=== PATIENT | female | born 1960 | race Caucasian/White ===

== ENCOUNTER 2020-06-22 07:03 | Outpatient (CLI) | payer OTHER, SELFPAY ==
--- NOTE | 2020-06-22 | ECG_ITS ---
Measurements Intervals [place] Rate: 76 P: 7 [place]: 163 QRS: -28 QRSD: 95 T: 66 QT: 399 QTc: 451 Interpretive Statements SINUS RHYTHM INFERIOR INFARCT, AGE INDETERMINATE ABNORMAL ECG Electronically Signed On 06-22-2020 8:18:37 MAIL HANDLERS SUPERVISOR by August Zavaleta D.O.
[2020-06-22 07:36] LABS: Hematocrit 44.6 % (37.0-47.0); Hemoglobin 14.2 g/dL (12.0-15.0)
[2020-06-22 07:44] LABS: Urine Cotinine NEGATIVE
[2020-06-22 07:44] LABS: Hemoglobin A1C 6.7 % (<5.7)
[2020-06-22 07:47] LABS: Albumin Level 3.9 g/dL (3.5-5.1); Estimated Glomerular Filt Rate > 60; Glucose 193 mg/dL (65-105)
== END 2020-06-22 07:04 | disposition home or self-care (01) ==
PROVIDERS: PCP Internal Medicine; Visit Provider Orthopaedic Surgery
DX: Z01.818 Encounter for other preprocedural examination (principal); M17.12 Unilateral primary osteoarthritis, left knee; R94.31 Abnormal electrocardiogram [ECG] [EKG]
CPT/HCPCS: 80307; 82040; 82565; 82947; 83036; 85014; 85018; 93005

== ENCOUNTER 2020-07-04 10:44 | Outpatient (CLI) | payer OTHER, SELFPAY ==
[2020-07-04 12:05] LABS: Basophils Absolute Auto 0.1 K/mm3 (0.0-0.1); Basophils Percent Auto 0.9 % (0.2-1.2); Eosinophils Absolute Auto 0.2 K/mm3 (0-0.3); Eosinophils Percent Auto 2.4 % (0-4.4); Hematocrit 44.2 % (37.0-47.0); Hemoglobin 13.9 g/dL (12.0-15.0); Immature Granulocyte Absolute 0.03 K/mm3 (0.00-0.031); Immature Granulocyte Percent A 0.4 % (0-0.5); Lymphocytes Absolute Auto 2.16 K/mm3 (0.9-3.2); Lymphocytes Percent Auto 28.7 % (18.3-44.2); Mean Corpuscular HGB Conc 31.4 g/dl (32-36); Mean Corpuscular Hemoglobin 25.5 pg (26-34); Mean Platelet Volume 10.2 fl (7.4-10.4); Monocytes Absolute Auto 0.4 K/mm3 (0.1-0.6); Monocytes Percent Auto 5.3 % (2.6-8.5); Neutrophils Absolute Auto 4.7 K/mm3 (1.3-6.7); Neutrophils Percent Auto 62.3 % (45.5-73.1); Platelet Count Result 229 k/mm3 (150-375); Red Blood Count 5.46 M/mm3 (4.2-5.4); Red Cell Distribution Width 13.6 % (11.5-14.5); White Blood Count 7.5 K/mm3 (4.5-10.0)
[2020-07-04 12:17] LABS: Anion Gap 5 mmol/L (8-16); Blood Urea Nitrogen 14 mg/dL (7-17); Calcium 9.1 mg/dL (8.4-10.2); Carbon Dioxide 30 mmol/L (22-30); Chloride 104 mmol/L (98-107); Estimated Glomerular Filt Rate > 60; Glucose 250 mg/dL (65-105); Potassium 4.5 mmol/L (3.4-5.0); Sodium 139 mmol/L (137-145)
== END 2020-07-04 10:45 | disposition home or self-care (01) ==
LOC: ANHSURGERY 10:49
PROVIDERS: Anesthesiology; PCP Internal Medicine; Visit Provider Orthopaedic Surgery
DX: Z01.818 Encounter for other preprocedural examination (principal); M17.12 Unilateral primary osteoarthritis, left knee; E11.9 Type 2 diabetes mellitus without complications
CPT/HCPCS: 36415; 80048; 85025; 87081

== ENCOUNTER → 2020-07-23 02:18 | Outpatient (CLI) | payer OTHER, SELFPAY ==
[2020-07-23 20:22] LABS: SARS-CoV-2 RNA PCR Negative
== END ==
PROVIDERS: PCP Internal Medicine; Visit Provider Orthopaedic Surgery
DX: Z01.812 Encounter for preprocedural laboratory examination (principal); Z20.822 Contact with and (suspected) exposure to COVID-19
CPT/HCPCS: C9803; U0003; U0005

== ENCOUNTER 2020-07-26 01:40 | Day surgery (SDC) | payer OTHER, SELFPAY ==
[2020-07-04 10:55] VITALS: BMI 37.1
[2020-07-04 11:42] VITALS: BP 150/80; PULSE 88; RESP 16; TEMP 37.3; O2SAT 97
--- NOTE | 2020-07-25 10:38 | WPDANESEPPF ---
Anes - Initial Pre Proc Eval Procedure: Operation Date: 07/26/20 10:00 Proposed Procedures p Left Total Knee Arthroplasty - César Castaneda MD Date/Time: 07/25/20 10:38 Surgeon: César Castaneda MD Pre Op Diagnosis: Primary OA Left Knee Patient Data Age: 60 Gender: F Height: 1.63 m Weight: 98.2 kg Last Vital Signs Temp 37.3 C 07/04/20 11:42 Pulse 88 07/04/20 11:42 Resp 16 07/04/20 11:42 BP 150/80 H 07/04/20 11:42 Pulse Ox 97 07/04/20 11:42 Allergies Allergy/AdvReac Type Severity Reaction Status Date / Time aspirin Allergy Severe RACING Verified 07/26/20 08:56 HEART doxycycline Allergy Severe Anaphylaxis Verified 07/26/20 08:56 Home Medications Medication Instructions Recorded Confirmed Type omega-3 fatty acids 1,000 mg 1,000 mg PO DAILY 04/02/19 07/26/20 History capsule L.acidoph, paracasei,B. lactis 10 10 cell PO DAILY 04/06/20 07/26/20 History billion cell capsule psyllium husk (with sugar) 2 gram 2 wafer PO DAILY 04/06/20 07/26/20 History oral wafer losartan 50 mg tablet 50 mg PO DAILY #90 tablet 06/29/20 07/26/20 Rx sitagliptin 100 mg tablet 100 mg PO DAILY #90 tablet 06/29/20 07/26/20 Rx atorvastatin 10 mg PO DAILY 07/04/20 07/26/20 History calcium carbonate [Tums] 400 mg PO PRN PRN 07/04/20 07/04/20 History ECG: Date of Service: 06/22/20 Procedure(s): CA 12 lead EKG Accession Number(s): [id number] cc: ~ Measurements Intervals [place] Rate: 76 P: 7 [place]: 163 QRS: -28 QRSD: 95 T: 66 QT: 399 QTc: 451 Interpretive Statements SINUS RHYTHM INFERIOR INFARCT, AGE INDETERMINATE ABNORMAL ECG Electronically Signed On 06-22-2020 8:18:37 MOLD MAKER by August Zavaleta D.O. 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 Chicken pox Chronic GERD Diarrhea H/O nephrolithotomy with removal of calculi 2009 History of measles, mumps, or rubella Hyperlipidemia Hypertension Impacted cerumen of both ears Migraines Neck pain Obesity Osteoarthritis Osteoarthritis of both knees Thyroid nodule Type 2 diabetes mellitus Surgical History Surgical History H/O breast biopsy Right 2010 Removal of atypical cells and surrounding tissue on right breast 04/03/2010 Left biopsy 06/02/2013 H/O colonoscopy (~07/23/14) H/O dilation and curettage 2004 H/O lithotripsy right side & cystoscopy 02/11/2015 H/O removal of cyst Cyst from back 2003 H/O: hysterectomy 2005 History of tonsillectomy 2003 S/P thyroid biopsy 08/16/2016 Family History Family History Father Diabetes mellitus Hypertension CLL (chronic lymphocytic leukemia) Vascular disease Kidney disease Diverticulitis Arteriosclerosis of bypass graft of coronary artery Grandparent Diabetes mellitus Mother Breast cancer Heart valve disorder Other Cerebrovascular accident Family history of arthritis Family history of blood dyscrasia Family history of congestive heart failure Family history of obesity Social History Social History Smoking status: Never smoker Additional smoking assessment comments: DENIES ANY FORM OF TOBACCO USE Alcohol intake: never Substance use: never Living arrangements: with family Spiritual care concerns: No Anes - Eval Final PreProcedure Day of Procedure 07/25/20 10:38 Patient weight: obese Heart: regular rate
[2020-07-26] VITALS (14 sets, daily range): BP systolic 141–166; BP diastolic 72–97; PULSE 86–103; RESP 12–20; TEMP 36–37.3; O2SAT 94–100
--- NOTE | ~2020-07-26 | XR_ITS ---
EXAMINATION: XR knee LT 2V EXAM DATE: 07/26/2020 12:34 INDICATION: Left knee arthroplasty. TECHNIQUE: Portable frontal, crosstable lateral projections left knee obtained immediately following arthroplasty. Procedure performed by César Castaneda MD. FINDINGS: Patient is status post total knee arthroplasty. The orthopedic hardware is in expected po sition. There is also been removal of previously seen suprapatellar recess joint body. There is small amount of subcutaneous gas, gas within the knee joint space. Overlying soft tissue swelling. Corre late with procedure note. IMPRESSION: Status post total left knee arthroplasty. Reviewed, dictated and finalized at location A.
--- NOTE | 2020-07-26 06:53 | WPDHPUPDATE1 ---
History and Physical Update Update Date/Time: 07/26/20 06:53 History and Physical has been reviewed, including an updated exam of the patient. There are NO changes in the patient's condition. Risks, benefits, and alternatives have been discussed and questions answered. Patient agrees to proceed with procedure.
[2020-07-26] MEDS: LACTATED RINGERS 1,000 ML 30 ML IV CONT ×2 (09:05→12:20)
--- NOTE | 2020-07-26 09:09 | WPDANESPNB ---
Anes - Peripheral Nerve Block Date/Time: 07/26/20 09:09 I have discussed with the patient/family/POA the placement of a peripheral nerve block for post-operative pain management, including associated risks, benefits, complications, and side effects. Alternative methods of post-operative analgesia were detailed. Questions were solicited and answers provided to the satisfaction of the patient/family/POA. Time-Out: A pre-procedural Time-Out was completed immediately before starting the procedure and confirmed: Patient Identification, Site, Procedure, Patient Position and the Availability of Requisite Equipment. Clinical Indications: Acute post-operative pain management requested by the operative surgeon. Nerve Block Insertion Note Anes-nerve block: adductor canal left Patient position: supine Skin prep: chlorhexidine Needle: 22 gauge, stimulating, insulated echogenic needle. Needle length: 80 mm Technique: ultrasound Technique comment: in plane Injectate: bupivacaine 0.5% with epi 5 mcg/ml (30cc) Observations: tolerated well Complications: none Procedure start time:: 955 Procedure end time:: 1000
[2020-07-26] MEDS: TRANEXAMIC ACID 1,000MG/ISO100 1,000 MG/100 ML BAG 200 MG IVPB (09:13)
[2020-07-26] MEDS: ACETAMINOPHEN 500 MG TABLET 1000 MG PO (09:14)
[2020-07-26 09:18] LABS: Glucose Point of Care 194 (65-105)
[2020-07-26] MEDS: ceFAZolin 2 GM/D5W 50 ML 2 GM/50 ML BAG IVPB (10:09)
[2020-07-26] MEDS: GENTAMICIN BONE CEMENT REFOBACIN 1 EACH TOPICAL (11:24)
[2020-07-26] MEDS: fentaNYL CITRATE INJ (*CRX) 100 MCG/2 ML VIAL 25 MCG IV PUSH ×6 (12:50→13:50)
[2020-07-26 12:57] LABS: Glucose Point of Care 245 (65-105)
--- NOTE | 2020-07-26 12:59 | SUR.PHASEI ---
1230 2 VIEWS OF XRAYS TAKEN OF LT KNEE.
--- NOTE | 2020-07-26 13:00 | PM.PROC ---
Procedure Note - Detailed Date of procedure: 07/26/20 Pre-op diagnosis: Primary OA Left Knee Post-op diagnosis: same Procedure performed: Total knee arthroplasty, left Description of procedure: Excellent bone quality. Moderate medial release. Large osteophytes and a loose body in the superior pouch were removed. Standard bone resections and alignment. 3? external rotation on the fibula. Small cyst in the patella was bone grafted. Implants: Setphanie Triathlon size 4 press-fit femur, size 4 cemented low-profile tibia, 11mm CS polyethylene insert, 35 mm asymmetric metal backed patellar component. Anesthesia: GETA and regional (subsartorial nerve block) Surgeon: César Castaneda MD Safety And Security Manager: Lisa London PA-C Estimated blood loss (mL): 250 Drains: No Complications: None Condition: stable Disposition: PACU Findings: Physician certified pathology assistant, Lisa London PA-C, required for surgery; including patient positioning, draping, tissue retraction, maintaining instrument position, cement removal, wound closure, and dressing placement. OPERATIVE DETAILS: The patient was given a nerve block preoperatively, and then brought to the operating room. A general anesthetic was administered. The leg was prepped and draped in the usual sterile fashion. The limb was elevated and the tourniquet inflated to 300 mmHg during initial exposure, and cementation. A longitudinal incision was created along the medial border of the patella and patellar tendon, and a trivector approach to the knee was performed. A medial release was taken. The knee was then flexed. The osteophytes were carefully removed. The intramedullary guide was placed in the femoral canal. The distal femoral resection was then taken with the oscillating saw. The collateral ligaments were carefully protected. The tibia was carefully exposed. The jig was applied, and the proximal tibia was resected according to preoperative plan. The knee was balanced in extension. Appropriate releases were taken where needed. The anterior cruciate ligament and meniscal remnants were removed. The posterior cruciate ligament was preserved. The patella was measured. Patellar resection was carried out with the oscillating saw. The lug holes drilled. The femur was sized and rotation assessed using a combination of gap balancing, posterior referencing, and the AP axis. The 4 in 1 cutting block was used to finish the femoral cuts after equal gaps were assured. The lug holes were drilled. The osteophytes were carefully removed from the back of the knee. The knee was copiously irrigated with antibiotic solution periodically throughout the procedure. The meniscal remnants were removed. The spacer block was used to confirm equal flexion and extension gaps. Further releases were performed as needed. The tibia was sized and broached. The bony surfaces were prepared for cementing with pulsatile lavage. The real tibial component was cemented into position followed by press fitting the femoral component. Excess cement was carefully removed. The patella component was press-fit. Patellar tracking was carefully assessed. No additional releases were required. The wound was closed with #1 Vycril suture, #2 Quill suture, 0-Quill suture, and 2-0 Quill suture followed by Steri-Strips. A sterile bulky dressing was applied. Meticulous hemostasis was maintained throughout the procedure. There were no complications. The patient was extubated and brought to the recovery room in stable condition after the application of sterile dressing with Jan bandage.
--- NOTE | 2020-07-26 14:20 | ADMGEN ---
This patient, Nina Rivera, was admitted to 2 Medical Room 244-. Patient/family oriented to hospital policies and general routines including ID bracelet, bed and alarms, visiting hours, pain management, procedures, bathroom and other care routines, personal items, smoking policy, room service/diet, and visiting hours. Information on how to activate the Rapid Response Team has been discussed. Patient/Family are encouraged to report perceived risks to care and to ask questions if they do not understand what they are told or what they should do.
[2020-07-26] MEDS: oxyCODONE HCL (*CRX) 5 MG TAB IR 10 MG PO ×3 (15:09→23:48)
[2020-07-26] MEDS: LOSARTAN POTASSIUM 50 MG TABLET PO (15:09)
[2020-07-26 16:34] LABS: Glucose Point of Care 219 (65-105)
[2020-07-26] MEDS: DOCUSATE SODIUM 100 MG CAPSULE PO (17:30)
[2020-07-26] MEDS: ONDANSETRON INJ 4 MG/2 ML VIAL IV PUSH (17:32)
[2020-07-26] MEDS: oxyCODONE HCL (*CRX) 5 MG TAB IR PO (21:24)
[2020-07-27 00:15] LABS: Glucose Point of Care 203 (65-105)
[2020-07-27] MEDS: ONDANSETRON INJ 4 MG/2 ML VIAL IV PUSH (02:52)
[2020-07-27] MEDS: oxyCODONE HCL (*CRX) 5 MG TAB IR PO ×3 (02:52→15:21)
[2020-07-27 04:00] VITALS: BP 135/71; PULSE 101; RESP 16; TEMP 36.4; O2SAT 97
[2020-07-27] MEDS: oxyCODONE HCL (*CRX) 5 MG TAB IR 10 MG PO ×2 (04:34→11:19)
[2020-07-27 05:59] LABS: Basophils Percent Auto 0.2 % (0.2-1.2); Eosinophils Percent Auto 0.1 % (0-4.4); Hematocrit 38.7 % (37.0-47.0); Hemoglobin 12.7 g/dL (12.0-15.0); Immature Granulocyte Absolute 0.11 K/mm3 (0.00-0.031); Immature Granulocyte Percent A 0.8 % (0-0.5); Lymphocytes Absolute Auto 1.32 K/mm3 (0.9-3.2); Lymphocytes Percent Auto 9.6 % (18.3-44.2); Mean Corpuscular HGB Conc 32.8 g/dl (32-36); Mean Corpuscular Hemoglobin 26.1 pg (26-34); Mean Corpuscular Volume 79.6 fl (80-100); Mean Platelet Volume 9.4 fl (7.4-10.4); Monocytes Absolute Auto 1.3 K/mm3 (0.1-0.6); Monocytes Percent Auto 9.6 % (2.6-8.5); Neutrophils Percent Auto 79.7 % (45.5-73.1); Platelet Count Result 238 k/mm3 (150-375); Red Blood Count 4.86 M/mm3 (4.2-5.4); Red Cell Distribution Width 13.3 % (11.5-14.5); White Blood Count 13.8 K/mm3 (4.5-10.0)
[2020-07-27 06:10] LABS: Anion Gap 6 mmol/L (8-16); Blood Urea Nitrogen 13 mg/dL (7-17); Calcium 8.4 mg/dL (8.4-10.2); Carbon Dioxide 28 mmol/L (22-30); Chloride 99 mmol/L (98-107); Estimated CRCL calculation 76 ml/min; Estimated Glomerular Filt Rate > 60; Glucose 221 mg/dL (65-105); Sodium 133 mmol/L (137-145)
--- NOTE | 2020-07-27 07:48 | PM.IMCN ---
Assessment and Plan Assessment and plan (1) Osteoarthritis of both knees: Code(s): M17.0 - Bilateral primary osteoarthritis of knee Status: Acute Assessment and Plan: status post left total knee arthroplasty Incentive Spirometry Pain control PT OT (2) Chronic GERD: Code(s): K21.9 - Gastro-esophageal reflux disease without esophagitis Status: Acute Assessment and Plan: Appears to be a stable Does not complain of any discomfort at this time PPI as needed (3) Hyperlipidemia: Code(s): E78.5 - Hyperlipidemia, unspecified Status: Acute Assessment and Plan: Continue statin (4) Type 2 diabetes mellitus: Qualifiers: Diabetes mellitus usp insulin use: without documentation analyst use Diabetes mellitus complication status: with hyperglycemia Qualified Code(s): E11.65 - Type 2 diabetes mellitus with hyperglycemia Code(s): E11.9 - Type 2 diabetes mellitus without complications Status: Acute Assessment and Plan: Diet and oral agents control Accu-Cheks AC and HS Insulin sliding scale as needed (5) Hypertension: Qualifiers: Hypertension type: essential hypertension Qualified Code(s): I10 - Essential (primary) hypertension Code(s): I10 - Essential (primary) hypertension Status: Acute Assessment and Plan: Continue to monitor Continue losartan HPI Data of Consult Consult date: 07/27/20 Requesting Physician: César Castaneda MD Primary Care Provider: Brad Atkins DO Consult Narrative Reason for consult: Medical management Narrative: Nina Rivera is a 60 year old female with past medical history significant for dyslipidemia ,hypertension, type 2 diabetes mellitus controlled with diet and oral agent. Patient is status post left total knee arthroplasty. She has been in her usual state of health prior to surgery. She denies any chills fevers or rigors, no cough or sputum production, no shortness of breath, no PND no orthopnea, no nausea ,vomiting ,abdominal pain ,diarrhea or constipation, no polydipsia polyphagia or polyuria no heat or cold intolerance, no chest pain or palpitation, no syncope or near syncope. I am seeing this patient upon request for consult from Dr. Castaneda orthopedic surgeon. Review of Systems Review of Systems: Narrative: Patient has been in her usual state of health she is now status post left total knee arthroplasty. Constitutional: Comments: No fevers no rigors no chills no weight loss Eyes: Comments: No changes in vision ENT: Comments: No dysphagia or otalgia or nasal congestion Cardiovascular: Comments: No PND no orthopnea no chest pain no leg swelling Respiratory: Comments: No cough or sputum production Gastrointestinal: Comments: No nausea vomiting abdominal pain diarrhea or constipation Genitourinary: Comments: No pain or burning with urination Musculoskeletal: Comments: Is status post a left total knee arthroplasty Neurologic: Comments: No sensorimotor deficit Hematologic/Lymphatic: Comments: No lymphadenopathies no easy bruising no petechiae PMFSH Past Medical History Medical History (Updated 07/25/20 @ 10:39 by Vaughn Lr MD) 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 Chicken pox Chronic GERD Diarrhea H/O nephrolithotomy with removal of calculi 2009 History of measles, mumps, or rubella Hyperlipidemia Hypertension Impacted cerumen of both ears Migraines Neck pain Obesity Osteoarthritis Osteoarthritis of both knees Thyroid nodule Type 2 diabetes mellitus Surgical History Surgical History H/O breast biopsy Right 2010 Removal of atypical cells and surrounding tissue on right breast 04/03/2010 Left biopsy 06/02/2013 H/O colonoscopy (~07/23/14) H/O dilation and curettage 2004 H/O lithotripsy right side & cystoscopy 02/11/2015 H/O removal of cyst Cyst from back 2003 H
[2020-07-27] MEDS: DOCUSATE SODIUM 100 MG CAPSULE PO (08:07)
[2020-07-27] MEDS: PSYLLIUM POWDER PACKET 1 PACKET PO (08:07)
[2020-07-27] MEDS: ACIDOPHILUS/BULGARICUS CHEWABLE TABLET 1 TABLET PO (08:07)
[2020-07-27] MEDS: LOSARTAN POTASSIUM 50 MG TABLET PO (08:07)
--- NOTE | 2020-07-27 08:19 | WPDANESPN ---
Anes - Prog Note Post-Op Date/Time: 07/27/20 08:19 Cardiovascular status: normal Respiratory status: normal Airway patency: baseline Mental status: baseline Post-Op hydration status: normal Vital Signs: Last Vital Signs Temp 36.4 C 07/27/20 04:00 Pulse 101 H 07/27/20 04:00 Resp 16 07/27/20 04:00 BP 135/71 07/27/20 04:00 Pulse Ox 97 07/27/20 04:00 Pain Score (VAS): 4/10. Patient resting in bed at time of assessment. Patient described 4/10 pain on self reported scale when taking PRN pain meds. Mild nausea with relief with PRN meds. I/O: Intake & Output 07/26/20 07/27/20 07/27/20 23:59 07:59 15:59 Intake Total 790 650 Balance 790 650 Laboratory Tests 07/27/20 05:22 07/27/20 05:22 07/26/20 07/26/20 07/26/20 08:59 09:08 12:55 WBC RBC Hgb Hct MCV MCH MCHC RDW Plt Count MPV Immature Gran % (Auto) Neut % (Auto) Lymph % (Auto) [place] % (Auto) Eos % (Auto) Baso % (Auto) Lymph # (Auto) [place] # (Auto) Eos # (Auto) Baso # (Auto) Abs Immat Gran (auto) Absolute Neuts (auto) Absolute Nucleated RBC Nucleated RBC % Sodium Potassium Chloride Carbon Dioxide Anion Gap BUN Creatinine Estim Creat Clear Calc Estimated GFR Glucose POC Capillary Glucose 194 H 245 H Calcium Blood Type A Positive Antibody Screen Negative 07/26/20 07/27/20 07/27/20 16:24 00:10 05:22 WBC 13.8 H RBC 4.86 Hgb 12.7 Hct 38.7 MCV 79.6 L MCH 26.1 MCHC 32.8 RDW 13.3 Plt Count 238 MPV 9.4 Immature Gran % (Auto) 0.8 H Neut % (Auto) 79.7 H Lymph % (Auto) 9.6 L [place] % (Auto) 9.6 H Eos % (Auto) 0.1 Baso % (Auto) 0.2 Lymph # (Auto) 1.32 [place] # (Auto) 1.3 H Eos # (Auto) 0.0 Baso # (Auto) 0.0 Abs Immat Gran (auto) 0.11 H Absolute Neuts (auto) 11.0 H Absolute Nucleated RBC 0.0 Nucleated RBC % 0.0 Sodium Potassium Chloride Carbon Dioxide Anion Gap BUN Creatinine Estim Creat Clear Calc Estimated GFR Glucose POC Capillary Glucose 219 H 203 H Calcium Blood Type Antibody Screen 07/27/20 05:22 WBC RBC Hgb Hct MCV MCH MCHC RDW Plt Count MPV Immature Gran % (Auto) Neut % (Auto) Lymph % (Auto) [place] % (Auto) Eos % (Auto) Baso % (Auto) Lymph # (Auto) [place] # (Auto) Eos # (Auto) Baso # (Auto) Abs Immat Gran (auto) Absolute Neuts (auto) Absolute Nucleated RBC Nucleated RBC % Sodium 133 L Potassium 4.0 Chloride 99 Carbon Dioxide 28 Anion Gap 6 L BUN 13 Creatinine 0.80 Estim Creat Clear Calc 76 Estimated GFR > 60 Glucose 221 H POC Capillary Glucose Calcium 8.4 Blood Type Antibody Screen Post-procedural complaints: nausea (relief with prn meds. ) Patient Feedback: Patient satisfied with anesthetic care.
[2020-07-27] MEDS: ATORVASTATIN 10 MG TABLET PO (09:22)
[2020-07-27 10:00] VITALS: BP 114/63; PULSE 97; RESP 18; TEMP 36; O2SAT 99
--- NOTE | 2020-07-27 12:20 | PM.DS ---
DS: Admitting Diagnosis Admitting Diagnosis Admitting Diagnosis: OA knee Left DS: Discharge Diagnosis Discharge Diagnosis (1) Status post total left knee replacement: Code(s): Z96.652 - Presence of left artificial knee joint Status: Acute Assessment and Plan: POD# 1 Left Total Knee Arthroplasty Patient tolerated procedure well. No complications. Patient had initial physical therapy and occupational therapy. Some increased pain after physical therapy. Pain controlled with pain medications. Patient does have drooping on the left side of her face. Patient states that this is normal for her and a residual effect from [place] palsy many years ago. She has not yet had a bowel movement but feels like she may need to go soon. She is passing gas. We discussed postoperative wound care, exercises, and expectations. The patient understands to look at the Blue instruction sheet if she has any questions. Patient shows good understanding. Patient is allergic to aspirin so we will order Xarelto for 12 days for DVT prophylaxis. Percocet given for pain control. DS: Summary Hospital Course Reason for hospitalization: Total knee arthroplasty Hospital Course: Patient tolerated procedure well. Has had initial PT/OT. Status at Discharge Functional status at discharge: uses cane/walker Overall status at discharge: patient is progressing back to baseline Time Spent with Patient Time attestation: Total time spent providing and/or coordinating discharge services: Exam Narrative: Exam Narrative: Obese Female. Resting comfortably in bed. Abdomen non-tender. Wearing compression socks bilaterally. Dressing intact with no drainage. Moderate swelling. No ecchymosis. No erythema. No hematoma. Range of motion limited due to pain. Calf nontender. Neurologic status intact. No varicosities. Distal pulses palpable. Normal capillary refill. Light touch sensation intact. DS: Data Data Completed and Pending Labs on day of discharge: Labs from last 24 hours 07/27/20 07/27/20 07/27/20 05:22 05:22 00:10 WBC 13.8 H RBC 4.86 Hgb 12.7 Hct 38.7 MCV 79.6 L MCH 26.1 MCHC 32.8 RDW 13.3 Plt Count 238 MPV 9.4 Immature Gran % (Auto) 0.8 H Neut % (Auto) 79.7 H Lymph % (Auto) 9.6 L [place] % (Auto) 9.6 H Eos % (Auto) 0.1 Baso % (Auto) 0.2 Lymph # (Auto) 1.32 [place] # (Auto) 1.3 H Eos # (Auto) 0.0 Baso # (Auto) 0.0 Abs Immat Gran (auto) 0.11 H Absolute Neuts (auto) 11.0 H Absolute Nucleated RBC 0.0 Nucleated RBC % 0.0 Sodium 133 L Potassium 4.0 Chloride 99 Carbon Dioxide 28 Anion Gap 6 L BUN 13 Creatinine 0.80 Estim Creat Clear Calc 76 Estimated GFR > 60 Glucose 221 H POC Capillary Glucose 203 H Calcium 8.4 07/26/20 07/26/20 16:24 12:55 WBC RBC Hgb Hct MCV MCH MCHC RDW Plt Count MPV Immature Gran % (Auto) Neut % (Auto) Lymph % (Auto) [place] % (Auto) Eos % (Auto) Baso % (Auto) Lymph # (Auto) [place] # (Auto) Eos # (Auto) Baso # (Auto) Abs Immat Gran (auto) Absolute Neuts (auto) Absolute Nucleated RBC Nucleated RBC % Sodium Potassium Chloride Carbon Dioxide Anion Gap BUN Creatinine Estim Creat Clear Calc Estimated GFR Glucose POC Capillary Glucose 219 H 245 H Calcium Discharge Plan Discharge Patient Disposition: Home, Self-Care Discharge Instructions: See instruction sheet Patient Instructions: Rivaroxaban (By mouth), Pain Management (DC), Joint Replacement Surgery (DC), Knee Replacement (DC) Follow-up/Referrals: Lisa London PA [Physician Lorry Weigher] - Discharge Medications: New oxycodone-acetaminophen 5-325 mg tablet 1 - 2 tablet PO Q4-6H MDD 6 PRN (Reason: pain) Qty: 30 RF: 0 Xarelto 10 mg tablet 10 mg PO DAILY 12 Days Qty: 12 RF: 0 Continued Januvia 100 mg tablet 100 mg PO
[2020-07-27 13:00] VITALS: BP 141/77; PULSE 96; RESP 16; TEMP 36.1; O2SAT 97
[2020-07-27] MEDS: RIVAROXABAN 10 MG TABLET PO (15:21)
== END 2020-07-27 15:30 | disposition home or self-care (01) ==
LOC: ANHSURGERY 07:55 → ANH2MED 14:04
PROVIDERS: PCP Internal Medicine; Visit Provider Orthopaedic Surgery
PROC: (CPT 27447; principal; 2020-07-26 10:00)
DX: M17.12 Unilateral primary osteoarthritis, left knee (principal); G89.18 Other acute postprocedural pain; I10 Essential (primary) hypertension; E11.9 Type 2 diabetes mellitus without complications; E78.5 Hyperlipidemia, unspecified; K21.9 Gastro-esophageal reflux disease without esophagitis; G51.0 Bell's palsy; E66.9 Obesity, unspecified; Z68.37 Body mass index [BMI] 37.0-37.9, adult; Z79.84 Long term (current) use of oral hypoglycemic drugs
CPT/HCPCS: 27447; 64447; 36415; 73560; 80048; 82948; 85025; 86850; 86900; 86901; 87081; 97110; 97116; 97161; 97165; 97530; A9270; C1713; C1776; C9803; J0131; J0171; J0690; J1100; J1170; J2250; J2270; J2405; J2704; J2795; J3010; J7120; U0003; U0005

== ENCOUNTER 2020-12-16 09:59 | Outpatient (CLI) | payer OTHER, SELFPAY ==
--- NOTE | ~2020-12-16 | DEXA_ITS ---
Bone Density Report Name: Nina Rivera Age: 60 Sex: Female Ethnicity: White Date of : 1960 Indication: postmenopausal; height loss; hysterectomy; Referring Provider: Kelsea Gonzalez Study: Bone densitometry was performed. Exam Date: December 16, 2020 Accession number: [id number] Bone Density: Region BMD T-score Z-score Classification AP Spine (L1, L3, L4) 1.003 -0.5 0.8 Normal Femoral Neck (Left) 0.923 0.7 1.9 Normal Total Hip (Left) 1.007 0.5 1.4 Normal Total Hip Bilateral Avg 1.044 0.8 1.7 Normal Femoral Neck (Right) 0.885 0.3 1.5 Normal Total Hip (Right) 1.079 1.1 2.0 Normal World Health Organization criteria for BMD impression classify patients as: Normal (T-score at or above -1.0), Osteopenia (T-score between -1.0 and -2.5), or Osteoporosis (T-score at or below -2.5). 10-year Fracture Risk: FRAX not reported because: All T-scores for Spine Total, Hip Total, Femoral Neck at or above -1.0 Clinical Information Provided by Patient: Has the following medical conditions: Hysterectomy Patient maximum height was 64 Menopause Age: 47 No regular weight bearing exercise Drinks caffeinated beverages Onset of menses at age 15 Number of children 2 Impression: The patient has normal bone mass. Discussion: BONE DENSITY IS ABOVE THE MINIMUM DESIRABLE LEVEL AT ALL SKELETAL SITES TESTED. This patient?s bone mineral density is above the minimum desirable level (T-score -1.0 or better) at all sites measured. The patient should follow a healthful lifestyle (good nutrition with adequate calcium and vitamin D, and appropriate weight-bearing exercise). Follow-Up: Consider repeating this study in 5 years or sooner if there is some new clinical indication. Reported by: [facility] on 12/16/2020 10:13:00 AM. Reviewed, dictated and finalized at location [place]
== END 2020-12-16 10:00 | disposition home or self-care (01) ==
LOC: ANHIMG 10:00
PROVIDERS: PCP Internal Medicine; Visit Provider Clinical Nurse Specialist
DX: Z78.0 Asymptomatic menopausal state (principal)
CPT/HCPCS: 77080

== ENCOUNTER 2024-08-27 09:26 | Outpatient (CLI) | payer BC, SELFPAY ==
--- NOTE | ~2024-08-27 | MM_ITS ---
EXAMINATION: MM screening enedelia BI w brittany HISTORY: Screening TECHNIQUE: Craniocaudal and mediolateral oblique 3-D tomosynthesis images were obtained and synthetic 2-D images were generated. CAD analysis was submitted and interpreted. COMPARISON: No prior mammogram is available for comparison at this institution. BREAST PARENCHYMAL COMPOSITION: Not dense: There are scattered areas of fibroglandular density. FINDINGS: There are no suspicious masses, calcifications or architectural distortion in the right betty ast to suggest malignancy. There are focal asymmetries in the lower inner quadrant of the left breast , middle third. IMPRESSION: 1. Focal left breast asymmetries. 2. Recommend comparison to prior outside mammograms. BI-RADS CATEGORY 0 - INCOMPLETE STUDY, NEED ADDITIONAL IMAGING EVALUATION. Reviewed, dictated and finalized at location A.
--- OUTSIDE RECORDS SUMMARY | 2024-08-27 09:54 | XMS_ITS | Clinical Summary ---
Author Organization [facility] Address [address] [place] [id number] Care Team Providers Care Patient Relations Specialist Name Role Phone Unavailable Primary Care Provider Unavailabl e Social History Tobacco Use Types Packs/Day Years Used Date Smoking Tobacco: Never Assessed Comments Unknown Sex and Gender Information Value Date Recorded Sex Assigned at Not on file Legal Sex Female 7:52 PM CDT Gender Identity Not on file Sexual Orientation Not on file Plan of Treatment Health Maintenance Due Date Last Done Comments Cervical Cancer Screening Pa p Smear (Age 30 to 64) Every 3 Years 1960 Colorectal Cancer Screening Colonoscopy (10 Years) 1962 Annual Physical 1965 Hepatitis C 1980 DTaP, Tdap and Td Vaccines ( 1 - Tdap) 1981 Cervical Cancer Screening Pa p with HPV Testing (Age 30 to 64) Every 5 Years 1992 Cervical Cancer Screening with HPV 1992 Mammogram Screening 2002 Pneumococcal Vaccine: 50+ Ye ars (1 of 1 - PCV) 2012 Zoster Vaccines (1 of 2) 2012 COVID-19 Vaccine (2023-2 5 season) 2023 RSV Immunization or 60+ Years (1 - 1-dose 75+ series) 2037 Meningococcal B Vaccine Aged Out No l onger eligible based on patient's age to complete this topic Meningococcal Vaccine Aged Out No talat shruthi eligible based on patient's age to complete this topic RSV Immunizations Under 20 Months Aged Out No longer eligible based on patient's age to complete this topic
--- OUTSIDE RECORDS SUMMARY | 2024-08-27 09:54 | XMS_ITS | CONTINUITY OF CARE DOCUMENT ---
Author Name carina lim Address Unknown Organization [facility] Address [id number] [place] [address] [address] [place] [address] Phone [phone] Care Team Providers Care Launch Engineer Name Role Phone carina lim Unavailable Unavailable
--- OUTSIDE RECORDS SUMMARY | 2024-08-27 09:54 | XMS_ITS | Clinical Summary ---
Author Organization [facility] Address [address] [place] [address] Phone Care Team Providers Care Chief Juvenile Probation Officer Name Role Phone MillyBrad Demond ARNOLD Primary Care Provider Allergies Active Allergy Reactions Criticality Noted Date Comments Aspirin Other (See Comments) 03/30/2010 tachycardia Doxycycline Swelling High 03/30/2010 Swelling throat Medications diclofenac sodium (VOLTAREN) 75 mg Oral TbEC Take 75 mg by mouth daily. 03/30/2010 Active Ca Carb-vit D3-mag ox-zinc ox (MACKENZIE MAG ZINC + D3) 333 mg calcium -133 unit-133mg Tablet Take by mouth daily. Active MULTIVITAMIN ORAL Take by mouth daily. Active Potassium 99 mg Tablet Take by mouth daily. Active Active Problems Problem Noted Date Diagnosed Date Lump or mass in breast 05/26/2013 Family History Medical History Relation Name Comments Diabetes Father Kidney Disease Father Diabetes Maternal Grandmother Breast Cancer Mother Breast Cancer Other 1 MGAunt1 Age at onset u nknown Breast Cancer Other 2 MGAunt2 Age at onset u nknown Ovarian Cancer Neg Hx Relation Name Status Comments Father Maternal Grandfather Maternal Grandmother Mother Other 1 MGAunt1 Other 2 MGAunt2 Paternal Grandfather Paternal Grandmother Social History Tobacco Use Types Packs/Day Years Used Date Smoking Tobacco: Never Alcohol Use Standard Drinks/Week Comments No 0 (1 standard drink = 0.6 oz pur e alcohol) Comments Unknown Sex and Gender Information Value Date Recorded Sex Assigned at Not on file Legal Sex Female 5:57 AM ASBESTOS CEMENT SHEET SUPERVISOR Gender Identity Not on file Sexual Orientation Not on file Last Filed Vital Signs Vital Sign Reading Time Taken Comments Blood Pressure 128/89 05/26/2013 10:50 AM ASBESTOS CEMENT SHEET SUPERVISOR Pulse 79 05/26/2013 10:50 AM ASBESTOS CEMENT SHEET SUPERVISOR Temperature 36.6 C (97.9 F) 04/03/2010 2:39 PM ASBESTOS CEMENT SHEET SUPERVISOR Respiratory Rate 16 05/26/2013 10:50 AM ASBESTOS CEMENT SHEET SUPERVISOR Oxygen Saturation 97% 04/03/2010 2:39 PM ASBESTOS CEMENT SHEET SUPERVISOR Inhaled Oxygen Concentration - - Weight 90.3 kg (199 lb) 06/02/2013 9:00 AM ASBESTOS CEMENT SHEET SUPERVISOR Height 162.6 cm (5' 4 ) 06/02/2013 9:00 AM ASBESTOS CEMENT SHEET SUPERVISOR Body Mass Index 34.16 06/02/2013 9:00 AM ASBESTOS CEMENT SHEET SUPERVISOR Plan of Treatment Health Maintenance Due Date Last Done Comments DTAP/TDAP/TD VACCINES (1 - Tdap) 1981 HPV/Cotest (21-29) 07/18/1983 CERVICAL CANCER SCREENING 1992 HPV/Cotest (30-65) 1992 PAP SMEAR 1992 COLORECTAL SCREENING 07/18/2007 Colorectal Cancer Screening 07/18/2007 FIT-DNA Q 3 years 07/18/2007 FIT/FOBT Q 1 year 07/18/2007 Flex Sig/CT Colonography Q 5 years 07/18/2007 ZOSTER VACCINE (1 of 2) 2012 INFLUENZA VACCINE (#1) 2023 BREAST CANCER SCREENING 11/29/2023 11/29/19 23, 10/18/2021, 10/07/2020, Additional history exists RSV VACCINE (60+ or ) (1 - 1-dose 75+ series) 2037 Procedures Procedure Name Priority Date/Time Associated Diagnosis Comments MAMMO 3D OSEI SCREEN BILAT W OR WO CAD Routine 11/28/2022 10:58 AM CDT Breast cancer screening by mammogram from Last 3 Months or Most Recently Relevant to Health Maintenance Results * MAMMO SCRN BILAT 3D OSEI W OR WO CAD (11/28/2022 10:58 AM CDT) Anatomical Region Laterality Modality Breast Bilateral Mammography Narrative 11/28/2022 11:05 AM CDT Bilateral Digital Mammogram with CAD and 3D Tomography Reason for Exam: Screening Comparison: Compared to: 10/18/2021 MAMMO SCRN BILAT 3D OSEI W OR WO CAD, 10/07/2020 MAMMO SCRN BILAT 3D OSEI W OR WO CAD, and 09/16/2019 MAMMO SCRN BILAT 3D OSEI W OR WO CAD Technique: 3D MLO and CC digital tomosynthesis images were acquired and synthesized 2D images (C view) were generated. This digital mammogram was also analyzed by the Computer Aided Detection System CAD). Findings: The breasts are heterogeneously dense, which may obscure small masses. There are no suspicious masses, areas of architectural distortions, or microcalcifications to suggest malignancy. No significant new findings since the prior mammogram(s). Impression: Negative screening mammogram. Recommendation: Routine annual follow-up Overall Assessment: Birads Category 1: Negative us Sarah Mcwilliams NP MAMMO ORDERABLE S Final Result from Last 3 Months or Most Recently Relevant to Health Maintenance Insurance O Advance Directives For more information, please contact: [phone] * Full Code (Latest Code Status on File) Date Activated Date Inactivated Comments 04/03/2010 12:32 PM 04/04/2010 2:31 AM * Full Code Date Activated Date Inactivated Comments 04/03/2010 8:13 AM 04/03/2010 12:32 PM * Full Code Date Activated Date Inactivated Comments 04/03/2010 8:01 AM 04/03/2010 8:13 AM Care Teams Chief Juvenile Probation Officer Relationship Specialty Start Date End Date Brad Atkins DO PCP - General 04/14/15
== END 2024-08-27 09:27 | disposition home or self-care (01) ==
PROVIDERS: PCP Clinical Nurse Specialist; Visit Provider Obstetrics & Gynecology Gynecology
DX: Z12.31 Encounter for screening mammogram for malignant neoplasm of breast (principal); R92.8 Other abnormal and inconclusive findings on diagnostic imaging of breast
CPT/HCPCS: 77063; 77067

== ENCOUNTER 2024-09-04 00:45 | Day surgery (SDC) | payer BC, SELFPAY ==
[2024-08-24 09:43] VITALS: BMI 36.9
--- OUTSIDE RECORDS SUMMARY | 2024-09-04 00:47 | XMS_ITS | CONTINUITY OF CARE DOCUMENT ---
Author Name carina lim Address Unknown Organization [facility] Address [address] [place] [address] [address] [place] [address] Phone [phone] Care Team Providers Care Pigs Feet Finisher Name Role Phone carina lim Unavailable Unavailable
--- OUTSIDE RECORDS SUMMARY | 2024-09-04 00:47 | XMS_ITS | Clinical Summary ---
Author Organization [facility] Address [address] [place] [address] Phone Care Team Providers Care Certified Hyperbaric Technologist Name Role Phone MillyBrad Demond ARNOLD Primary [...] on file Legal Sex Female 5:57 AM MANAGER DOCUMENT CONTROL Gender Identity Not on file Sexual Orientation Not on file Last Filed Vital Signs Vital Sign Reading Time Taken Comments Blood Pressure 128/89 05/26/2013 10:50 AM MANAGER DOCUMENT CONTROL Pulse 79 05/26/2013 10:50 AM MANAGER DOCUMENT CONTROL Temperature 36.6 C (97.9 F) 04/03/2010 2:39 PM MANAGER DOCUMENT CONTROL Respiratory Rate 16 05/26/2013 10:50 AM MANAGER DOCUMENT CONTROL Oxygen Saturation 97% 04/03/2010 2:39 PM MANAGER DOCUMENT CONTROL Inhaled Oxygen Concentration - - Weight 90.3 kg (199 lb) 06/02/2013 9:00 AM MANAGER DOCUMENT CONTROL Height 162.6 cm (5' 4 ) 06/02/2013 9:00 AM MANAGER DOCUMENT CONTROL Body Mass Index 34.16 06/02/2013 9:00 AM MANAGER DOCUMENT CONTROL Plan of Treatment Health Maintenance Due Date [...] 11/29/19 23, 10/18/2021, 10/07/2020, Additional history exists Preventative Visit- Commercial 04/29/2024 RSV VACCINE (60+ or ) (1 - [...] follow-up Overall Assessment: Birads Category 1: Negative Sarah Mcwilliams [employer] MAMMO ORDERABLE S Final Result from Last 3 Months or Most Recently Relevant to Health Maintenance Insurance O Advance Directives For more information, please contact: [phone] * Full Code (Latest Code Status on File) Date Activated Date Inactivated Comments 04/03/2010 12:32 PM 04/04/2010 2:31 AM * Full Code Date Activated Date Inactivated Comments 04/03/2010 8:13 AM 04/03/2010 12:32 PM * Full Code Date Activated Date Inactivated Comments 04/03/2010 8:01 AM 04/03/2010 8:13 AM Care Teams Certified Hyperbaric Technologist Relationship Specialty Start Date End Date Brad Atkins DO PCP - General 04/14/15
--- OUTSIDE RECORDS SUMMARY | 2024-09-04 00:47 | XMS_ITS | Continuity of Care Document ---
Author Organization [facility] Address [address] [place] [address] Phone Care Team Providers Care Inspector Fibrous Wallboard Name Role Phone Jany PT, GERDAT, Harris Unavailable Unavailable Procedures Procedure Date Therapeutic Activities Therapeutic Exercise Therapeutic Activities Therapeutic Exercise Therapeutic Activities Therapeutic Exercise Therapeutic Activities Neuromuscular Re-Ed Therapeutic Exercise Doc neg elder mal no plan PT Evaluation Moderate Complexity Therapeutic Activities Advance Directives Directive Yes / No Effective Date File Name No Information Encounters Encounter Description Practice Location Reason(s) For Visit Diagnoses Date Provider Providers Copied on Encounter [facility], [address], [place], [place], [id number], tel:[phone] [place] No Information 4 Jany Iglesias. . Referring Provider: Brad Atkins, [address] [place] [address] [address], [place], [address]. tel:[phone] [facility], [address], [place], [place], [id number], tel:[phone] [place] No Information 4 Stephania Mendez. . Referring Provider: Brad Atkins, [address] [place] [address] [address], [place], [address]. tel:[phone] [facility] [address], [place], [place], [id number], [place] tel:[phone] [place] No Information 4 Stephania Mendez. . Referring Provider: Brad Atkins, [address] [place] [address] [address], [place], [address]. tel:[phone] [facility] [address], [place], [place], [id number], [place] tel:[phone] [place] No Information 4 Jany Iglesias. . Referring Provider: Brad Atkins, [address] [place] [address] [address], [place], [address]. tel:[phone] [facility] [address] [place] [address], [place], [place], [id number], tel:[phone] [place] No Information 4 Jany Iglesias. . Referring Provider: Brad Atkins, [address] [place] [address] [address], [place], [address]. tel:[phone] Family History Family Member Type Diagnosis Age At Onset No Information Payers Payer name Insurance type Covered constitution party ID Authorkarla eula(s) [facility] [id number] Social History Type Description Quantity Date Captured Comments Sex Female Smoking Status No Information Chief Complaint And Reason For Visit No Information Reason For Referral Reason For Referral No Information History Of Present Illness Encounter Date Complaint History Of Prese nt Illness No Information Functional Status Date Functional Assessmen t No Information Instructions Date Instruction Additional Infor mation No Information Assessments Type Assessment Date No Information Patient Care Teams Name Effective Dates (start - stop) Status Members No Information
--- OUTSIDE RECORDS SUMMARY | 2024-09-04 00:47 | XMS_ITS | Clinical Summary ---
Author Organization [facility] Address [address] [place] [address] Care Team Providers Care Public Address Servicer Name Role Phone Unavailable Primary Care Provider [...]
[2024-09-04 08:27] VITALS: BP 149/81; PULSE 91; RESP 20; TEMP 36.1; O2SAT 99
[2024-09-04 08:41] LABS: Glucose Point of Care 166 mg/dl (65-105)
[2024-09-04] MEDS: LACTATED RINGERS 1,000 ML 150 ML IV CONT (08:42)
--- NOTE | 2024-09-04 08:54 | PM.HPGS ---
History of Present Illness History of Present Illness Consent: Risks, benefits, and alternatives have been discussed and questions answered. Patient agrees to proceed with procedure. 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 H/O nephrolithotomy with removal of calculi 2010 Migraines Osteoarthritis History of measles, mumps, or rubella Chicken pox Hypertension Hyperlipidemia Type 2 diabetes mellitus Surgical History Surgical History H/O total knee replacement Left 07/26/2020 H/O tubal ligation 10/01/2003 History of knee replacement H/O colonoscopy (~07/23/14) S/P thyroid biopsy 08/16/2016 H/O lithotripsy right side & cystoscopy 02/11/2015 H/O removal of cyst Cyst from back 2003 H/O: hysterectomy 2005 H/O dilation and curettage 2005 H/O breast biopsy Right 2010 Removal of atypical cells and surrounding tissue on right breast 04/03/2010 Left biopsy 06/02/2013 History of tonsillectomy 2003 Family History Family History Father Diabetes mellitus Hypertension CLL (chronic lymphocytic leukemia) Vascular disease Kidney disease Diverticulitis Arteriosclerosis of bypass graft of coronary artery Grandparent Diabetes mellitus Mother Breast cancer Heart valve disorder Other Cerebrovascular accident Family history of arthritis Family history of blood dyscrasia Family history of congestive heart failure Family history of obesity Social History Social History Social History: Caffeine-Tea Smoking status: Never smoker Additional smoking assessment comments: DENIES ANY FORM OF TOBACCO USE Alcohol intake: never Substance use: never Substance use type: does not use Do You Feel Safe in your Home?: Yes Lack of Transportation: No Lack of Food: Never True Current Housing: I Have Housing Concerned About Future Housing: No Difficulty Paying Gas/Electric Bills: No Difficulty Paying for Meds: No Currently Unemployed: No Education: Associate Degree Difficulty w/ Childcare or Family Care: No Living arrangements: with family Gender identity (if verbalized by the patient): Female Spiritual care concerns: No Meds Home Medications and Allergies Home Medications ?Medication ?Instructions ?Recorded ?Confirmed ?Type omega-3 fatty acids 1,000 mg 1,000 mg PO DAILY 04/02/19 09/04/24 History capsule (Fish Oil Concentrate) lactobacillus combination no.9 4 4,000 mmu cells PO DAILY 04/10/21 09/04/24 History billion cell capsule (Adult 50 Plus Probiotic) multivitamin 1 tablet PO DAILY 04/10/21 09/04/24 History atorvastatin 20 mg tablet 20 mg PO DAILY #90 tabs 01/15/24 09/04/24 Rx losartan 50 mg tablet 50 mg PO DAILY #90 tabs 01/15/24 09/04/24 Rx blood sugar diagnostic (Blood #50 ea 07/02/24 07/02/24 Rx Glucose Test strips) blood-glucose meter #1 ea 07/02/24 07/02/24 Rx lancets 31 gauge #100 ea 07/02/24 07/02/24 Rx semaglutide 7 mg tablet (Rybelsus) 7 mg PO DAILY #30 tabs 08/24/24 09/04/24 Rx Allergies Allergy/AdvReac Type Severity Reaction Status Date / Time aspirin Allergy Severe RACING Verified 09/04/24 08:25 HEART doxycycline Allergy Severe Anaphylaxis Verified 09/04/24 08:25 Vital Signs Vital Signs - 24 hr 09/04/24 08:27 Temperature 97 F L Pulse Rate 91 Respiratory Rate 20 Blood Pressure 149/81 H Pulse Oximetry 99 Oxygen Delivery Room Air Exam Const: General: comfortable and no acute distress HENMT: Face/Nose/Sinus: Normal nares present Eyes: General: appearance normal, both eyes and all related structures Neck: Neck: no JVD Resp: Auscultation: clear to auscultation bilaterally Cardio: Rate: regular rate Rhythm: regular rhythm GI: Inspection: non-distended GI Palp: Yes Soft to palpation Skin: General skin exam: normal color Neuro: General: gait normal Speech: normal speech Extrem: General: normal to inspection Psych: Mental Status: mental status grossly normal Assessment and Plan Assessment and plan (1) Dysphagia: Code(s): R13.10 - Dysphagia, unspecified Status: Acute Assessment and Plan: egd (2) Colon cancer screening: Code(s): Z12.11 - Encounter for screening for malignant neoplasm of colon Status: Acute Assessment and Plan: colonoscopy
[2024-09-04] MEDS: BENZOCAINE (*SP) 60 ML SPRAY CAN (HURRICAINE) 1 SPRAY MUCOUS MEM (08:58)
--- NOTE | 2024-09-04 09:07 | SUR.OPER ---
EGD: [id number] COLON: Start 906
[2024-09-04 09:17] VITALS: BP 129/72; PULSE 79; RESP 19; O2SAT 98
[2024-09-04 09:27] VITALS: BP 140/77; PULSE 74; RESP 16; O2SAT 98
[2024-09-04 09:37] VITALS: BP 140/84; PULSE 69; RESP 14; O2SAT 100
== END 2024-09-04 09:48 | disposition home or self-care (01) ==
PROVIDERS: PCP Clinical Nurse Specialist; Referring Provider Obstetrics & Gynecology Gynecology; Visit Provider Internal Medicine Gastroenterology
PROC: 0DJ08ZZ Inspection of Upper Intestinal Tract, Via Natural or Artificial Opening Endoscopic (ICD-10-PCS; CPT 45378; principal; 2024-09-04 09:30)
DX: Z12.11 Encounter for screening for malignant neoplasm of colon (principal); D12.4 Benign neoplasm of descending colon; K63.5 Polyp of colon; K64.8 Other hemorrhoids; E78.5 Hyperlipidemia, unspecified; I10 Essential (primary) hypertension; E11.9 Type 2 diabetes mellitus without complications; K21.9 Gastro-esophageal reflux disease without esophagitis; M17.0 Bilateral primary osteoarthritis of knee; Z98.890 Other specified postprocedural states; Z98.51 Tubal ligation status; Z80.3 Family history of malignant neoplasm of breast; Z80.6 Family history of leukemia; Z82.49 Family history of ischemic heart disease and other diseases of the circulatory system
CPT/HCPCS: 43239; 45380; 82948; 88305; J2003; J2704; J7120